=== PATIENT | male | born 1985 | race African-American/Black ===

== ENCOUNTER 2016-10-06 17:48 | Emergency (ER) | payer SELFPAY ==
[2016-10-06] MEDS ORDERED: PENICILLIN V POTASSIUM 500 MG TABLET PO ONE (19:32)
[2016-10-06] MEDS ORDERED: BUPIVACAINE HCL 0.5 % INJ/PF 30 ML SDV INJ ONE (19:32)
[2016-10-06] MEDS ORDERED: HYDROCODONE/ACETAMINOPHEN 5-325 MG 6 TAB/DSPK PO PRN (20:08)
--- NOTE | 2016-10-06 20:08 | ER Document Report ---
HPI - HPI Onset: Other - 3 days Onset/Duration: Gradual Quality of pain: Achy, Throbbing Pain Level: 5 Associated Symptoms: Headache. denies: Chills, Earache, Fever Exacerbated by: Denies Relieved by: Denies Similar symptoms previously: No Recently seen / treated by doctor: No - CARDIOVASCULAR Cardiovascular: DENIES: Chest pain - DERM Skin Color: Normal Past Medical History - Social History Smoking Status: Current Every Day Smoker Chew tobacco use (# tins/day): No Frequency of alcohol use: None Drug Abuse: Marijuana Family History: Reviewed & Not Pertinent Patient has suicidal ideation: No Patient has homicidal ideation: No Renal/ Medical History: Denies: Hx Peritoneal Dialysis Surgical Hx: Negative - Immunizations Hx Diphtheria, Pertussis, Tetanus Vaccination: No Vertical Provider Document - INFECTION CONTROL TRAVEL OUTSIDE OF THE [place] IN LAST 30 DAYS: No - HEENT HEENT: Normal ENT Exam Mouth Diagram: 1 - fx tooth with fx filling, no abscess Notes: Uvula midline. Airway patent. No evidence of tonsillar enlargement, peritonsillar abscess, retropharyngeal abscess. - NECK Neck: Normal Inspection, Other - No evidence of Roland angina. negative: Lymphadenopathy-Left, Lymphadenopathy-Right - RESPIRATORY Respiratory: Breath Sounds Normal, No Respiratory Distress, Chest Non-Tender O2 Sat by Pulse Oximetry: 99 - CARDIOVASCULAR Cardiovascular: Regular Rate, Regular Rhythm, No Murmur Course - Re-evaluation Re-evalutation: 10/06/16 20:49 Patient is a 31-year-old male presented with department complaining of dental pain. Patient is hemodynamic stable, no acute distress and afebrile. Patient received a 5 cc Sensorcaine block with complete resolution of symptoms. Patient initiated on penicillin and discharged home with instruction to follow- up with dentist in 7-10 days. - Vital Signs Vital signs: Temp Pulse Resp BP Pulse Ox 98.4 F 86 16 142/92 H 99 10/06/16 17:53 10/06/16 17:53 10/06/16 17:53 10/06/16 17:53 10/06/16 17:53 Procedures - Additional Procedures dental block Additional Procedures: Other - Dental block: Patient received a 5 cc inferior alveolar nerve block with complete resolution of the symptoms and no complications. Discharge - Discharge Clinical Impression: Toothache Condition: Good Disposition: HOME, SELF-CARE Instructions: [facility], Penicillin V K ([facility]), Toothache ([facility]) Additional Instructions: [facility] Address: [address] [place] [address] [id number] [facility] [address] [place], [place] Thursday mornings, by appointment [facility] [address] [place] [address] [facility] [address] [facility] [address] [facility] ([facility]) [facility] [address] [email or web address] [address] [place] [address] Thursday- 8:00am to 5:00 pm Will see patients from other [facility]. Charges based on income and family size and accepts Medicare, Medicaid, and Insurances Will pull molars [facility] [id number] Hours of Operation 8:00 am - 4:30 pm weekdays The following dental offices accept Medicaid: [facility] Dr. Woods Dr. Batista Dr. Ricardo Dr. Evans Cong Paul, Karmen, and Alissa oral surgery Dr. Hayward ([place]) Dr. Orellana ([place]) [facility] Drs. Schneider ([place]) Dr. Walker ([place]) [facility] Dr. Oliva ([place]) Drs. Gómez and ([place]) Medicaid Care Line Prescriptions: Penicillin V Potassium [Penicillin Vk 500 mg Tablet] 500 mg PO BID #20 tablet Forms: Elevated Blood Pressure Referrals: DALI HAMILTON MD [NO LOCAL MD] - Follow up as needed
[2016-10-06 20:37] VITALS: BP 133/83
== END 2016-10-06 20:35 | disposition home or self-care (01) ==
LOC: ER 17:48
PROC: 3E0T3BZ Introduction of Anesthetic Agent into Peripheral Nerves and Plexi, Percutaneous Approach (ICD-10-PCS; principal; 2016-10-06)
DX: K08.9 Disorder of teeth and supporting structures, unspecified (principal); R51 Headache; F17.200 Nicotine dependence, unspecified, uncomplicated
CPT/HCPCS: 99282